=== PATIENT | female | born 1995 | race Asian ===

== ENCOUNTER 2019-06-03 11:44 | Emergency (ER) | payer SELFPAY ==
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
[2019-06-03 12:23] LABS: ABS Lymphocytes 1.4 10^3/ul (1.0-4.8); ABS Monocytes 0.6 10^3/ul (0-0.8); ABS Neutrophils 9.8 10^3/ul (1.5-7.7); Eosinophil % 0.2 %; Hematocrit 39 % (35-47); Mean Corpuscular HGB Conc 34 g/dL (31-36); Mean Corpuscular Hemoglobin 31 pg (27-31); Mean Corpuscular Volume 93 fL (80-97); Platelet Count 241 10^3/uL (150-450); Red Blood Count 4.16 10^6 /uL (3.70-4.87); Red Cell Distribution Width 13 % (10-15); White Blood Count 11.9 10^3/uL (3.5-10.8)
[2019-06-03 12:43] LABS: ALT 11 U/L (7-52); AST 17 U/L (13-39); Albumin 4.5 g/dL (3.2-5.2); Albumin/Globulin Ratio 1.9 (1-3); Alkaline Phosphatase 46 U/L (34-104); Anion Gap 6 mmol/L (2-11); BUN/Creatinine Ratio 11.1 (8-20); Blood Urea Nitrogen 7 mg/dL (6-24); CO2 Carbon Dioxide 26 mmol/L (22-32); Calcium 9.1 mg/dL (8.6-10.3); Chloride 110 mmol/L (101-111); EGFR African American 141.7 (>60); EGFR Non-African American 117.1 (>60); Globulin 2.4 g/dL (2-4); Glucose 88 mg/dL (70-100); Potassium 3.6 mmol/L (3.5-5.0); Sodium 142 mmol/L (135-145); Total Protein 6.9 g/dL (6.4-8.9)
[2019-06-03 12:46] LABS: HCG Pregnancy < 0.60 mIU/mL
[2019-06-03] MEDS ORDERED: Iohexol 300* (CONTRAST) 10 ML SDV IV ONE (13:43)
[2019-06-03] MEDS ORDERED: Lidocaine 1% MPF ** 5 ML VIAL INJ ONE (14:44)
[2019-06-03] MEDS ORDERED: Acetaminophen TAB* 325 MG PO ONE (14:55)
[2019-06-03] MEDS ORDERED: Ibuprofen TAB* 600 MG PO ONE (14:55)
[2019-06-03 15:23] VITALS: BP 115/80
== END 2019-06-03 15:16 | disposition home or self-care (01) ==
LOC: ED 11:44
DX: S61.210A Laceration without foreign body of right index finger without damage to nail, initial encounter (principal); T71.9XXA Asphyxiation due to unspecified cause, initial encounter; S00.212A Abrasion of left eyelid and periocular area, initial encounter; S80.811A Abrasion, right lower leg, initial encounter; Y04.2XXA Assault by strike against or bumped into by another person, initial encounter; Y92.9 Unspecified place or not applicable
CPT/HCPCS: 12001; 36415; 70486; 70491; 80053; 84702; 85025; 99283; A9270-GY; Q9967